=== PATIENT | male | born 1970 | race Caucasian/White ===

== ENCOUNTER → 2017-01-04 | Outpatient (CLI) | payer BC ==
[2017-01-04 09:43] LABS: BASO % 0.2 %; BASO ABS # 0.01 K/uL (0-0.2); COMPLETE YES; EOS % 1.9 %; HEMATOCRIT 46.4 % (42-52); LYMPH % 26.4 %; MEAN CELL VOLUME 86.6 fL (80-100); MEAN CORPUSCULAR HGB CONC 35.8 g/dl (32-36); MONO % 7.7 %; NEUT % 63.8 %; PLATELET COUNT 140 K/uL (130-400); RED BLOOD COUNT 5.36 M/uL (4.7-6.1); WHITE BLOOD COUNT 4.16 K/uL (4.8-10.8)
[2017-01-04 10:26] LABS: ALT/SGPT 19 U/L (12-78); BLOOD UREA NITROGEN 15 mg/dl (7-18); BUN/CREATININE RATIO 16.2 (10-20); CALCIUM 8.5 mg/dl (8.5-10.1); CARBON DIOXIDE 30 mmol/L (21-32); CHLORIDE 106 mmol/L (98-107); CHOLESTEROL 117 mg/dl (0-200); GLUCOSE 77 mg/dl (70-99); POTASSIUM 4.2 mmol/L (3.5-5.1); SODIUM 143 mmol/L (136-145); TRIGLYCERIDES 58 mg/dl (0-150); VERY LOW DENSITY LIPOPROT CALC 12 mg/dl
[2017-01-04 10:29] LABS: ALB/GLOB RATIO 1.3 (0.9-2); ALKALINE PHOSPHATASE 70 U/L (45-117); AST/SGOT 26 U/L (15-37); CHOLESTEROL/HDL RATIO 3.3; HDL CHOLESTEROL 36 mg/dl; LDL CHOLESTEROL CALCULATED 69 mg/dl
== END | disposition home or self-care (01) ==
LOC: C.LAB1850 08:31
PROVIDERS: ATTEND Internal Medicine
DX: I10 Essential (primary) hypertension (principal); D72.819 Decreased white blood cell count, unspecified

== ENCOUNTER → 2017-05-21 | Outpatient (CLI) | payer BC | END | disposition home or self-care (01) | LOC: C.LAB1850 11:08 | PROVIDERS: ATTEND Urology | DX: N40.1 Benign prostatic hyperplasia with lower urinary tract symptoms (principal) ==

== ENCOUNTER → 2017-09-19 | Outpatient (CLI) | payer BC ==
--- NOTE | 2017-09-19 09:05 | DIAGNOSTIC IMAGING REPORT ---
L KNEE 3 VIEWS HISTORY: 47 years-old Male LEFT KNEE PAIN acute left knee pain without reported trauma COMPARISON: None available TECHNIQUE: 3 views of the left knee FINDINGS: No acute fracture, subluxation or significant degenerative changes. No large joint effusion or opaque foreign body. No intra-articular loose body. IMPRESSION: No acute bony abnormality. The above report was generated using voice recognition software. It may contain grammatical, syntax or spelling errors. Electronically signed by: Jayce Tipton M.D. 09/19/2017 9:04 AM Dictated Date/Time: 09/19/2017 9:03 AM
== END | disposition home or self-care (01) ==
LOC: C.RAD1850 08:29
PROVIDERS: ATTEND Internal Medicine
DX: M25.562 Pain in left knee (principal)

== ENCOUNTER → 2017-09-24 | Outpatient (CLI) | payer BC ==
--- NOTE | 2017-09-25 07:33 | DIAGNOSTIC IMAGING REPORT ---
LEFT KNEE ULTRASOUND CLINICAL HISTORY: M25.562 Left knee pain and swelling behind left knee r/o popliteal cyst COMPARISON STUDY: None. FINDINGS: Real-time sonographic imaging of the left popliteal fossa was performed. No masses or fluid collections identified. Specifically, no evidence for a popliteal cyst. The left popliteal artery and vein appear patent. IMPRESSION: No sonographic abnormality within the left popliteal fossa. Electronically signed by: Benedicto Wing M.D. 09/25/2017 7:31 AM Dictated Date/Time: 09/25/2017 7:30 AM
== END | disposition home or self-care (01) ==
LOC: C.ULTR 11:11
PROVIDERS: ATTEND Internal Medicine
DX: M25.562 Pain in left knee (principal)

== ENCOUNTER → 2018-01-21 | Outpatient (CLI) | payer BC | END | disposition home or self-care (01) | LOC: C.LAB1850 07:53 | PROVIDERS: ATTEND Internal Medicine Cardiovascular Disease | DX: I10 Essential (primary) hypertension (principal) ==